=== PATIENT | male | born 1995 | race African-American/Black ===

== ENCOUNTER 2021-02-14 01:47 | Emergency (ER) | payer SELFPAY ==
[~2021-02-14] VITALS: Ht 198.1 cm; Wt 97.5 kg
[2021-02-14 02:04] VITALS: BP_SYST 151
[2021-02-14] MEDS ORDERED: KETOROLAC TROMETHAMINE 60 MG/2 ML VIAL IM ONE ×2 (02:30→02:34)
[2021-02-14] MEDS ORDERED: BUDE8.43 NS (03:51)
[2021-02-14 03:58] VITALS: BP_SYST 125
== END 2021-02-14 03:58 | disposition home or self-care (01) ==
LOC: SED 01:47
DX: R51.9 Headache, unspecified (principal); Z79.899 Other long term (current) drug therapy
CPT/HCPCS: 70450; 76376; 96372; 99284; J1885